=== PATIENT | male | born 1990 | race Caucasian/White ===

== ENCOUNTER 2019-09-09 10:58 | Emergency (ER) | payer MEDICAID ==
[~2019-09-09] VITALS: Ht 182.9 cm; Wt 72.7 kg
[2019-09-09] MEDS ORDERED: TETanus/Pertussis (Acell)/Diphther VAC/PF (Tdap-Adult) 0.5ml syringe IMVAC ONE (11:10)
[2019-09-09] MEDS ORDERED: normal saline 1000ML IV soln IVB ONE (11:10)
--- NOTE | 2019-09-09 11:11 | NUR ---
Ice pack applied to arm and pack provided to pt for facial use.
[2019-09-09] MEDS ORDERED: iohexol 300mg/ml 100ml inj. ONE (11:13)
--- NOTE | 2019-09-09 11:25 | NUR ---
APPLIED ICE PACK TO WRIST
[2019-09-09 11:29] LABS: BASOPHILS % (AUTO) 0.6 % (0-1); EOSINOPHILS % (AUTO) 0.2 % (0-6); HEMATOCRIT 42.8 % (42.0-52.0); HEMOGLOBIN 14.4 g/dl (14.0-17.9); LYMPHOCYTES % (AUTO) 23.6 % (21-51); MEAN CORPUSCULAR HEMOGLOBIN 32.8 PG (27.0-31.0); MEAN CORPUSCULAR HGB CONC 33.6 g/dL (33.0-36.5); MEAN CORPUSCULAR VOLUME 97.7 FL (78-98); MEAN PLATELET VOLUME 8.9 FL (7.4-10.4); MONOCYTES # (AUTO) 0.5 X10'3 (0-0.9); MONOCYTES % (AUTO) 6.1 % (2-12); NEUTROPHILS # (AUTO) 5.8 X10'3 (1.8-7.7); NEUTROPHILS % (AUTO) 69.5 % (42-75); PLATELET COUNT 191 X10'3 (140-440); RED BLOOD COUNT 4.38 X10'6 (4.70-6.10); RED CELL DISTRIBUTION WIDTH 14.2 % (11.5-14.5); WHITE BLOOD COUNT 8.3 X10'3 (4.5-11.0)
[2019-09-09 11:40] LABS: ALANINE AMINOTRANSFERASE 21 U/L (12-78); ALBUMIN 4.3 G/DL (3.4-5.0); ALBUMIN/GLOBULIN RATIO 1.2 (1.1-1.5); ALKALINE PHOSPHATASE 154 IU/L (46-116); ANION GAP 8 (8-16); ASPARTATE AMINO TRANSFERASE 31 U/L (10-37); BILIRUBIN,TOTAL 1.1 MG/DL (0.1-1.0); BLOOD UREA NITROGEN 12 MG/DL (7-18); BUN/CREATININE RATIO 16.7 (5.4-32.0); CALCIUM 8.9 MG/DL (8.5-10.1); CHLORIDE 109 MMOL/L (99-107); CREATININE 0.72 MG/DL (0.60-1.10); ETHANOL 0.105 GM/DL (0.0-0.010); GLUCOSE 78 MG/DL (70-104); POTASSIUM 4.4 MMOL/L (3.5-5.1); SODIUM 145 MMOL/L (135-145); TOTAL CARBON DIOXIDE 27.8 MMOL/L (24-32); TOTAL PROTEIN 7.9 G/DL (6.4-8.2); eGFR > 90 ML/MIN
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
--- NOTE | 2019-09-09 11:52 | NUR ---
Pt's best contact # [phone] (cell phone)
--- NOTE | 2019-09-09 11:57 | NUR ---
FRIEND JUNIOR PHONE NUMBER IS PT RIDE [phone]
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
[2019-09-09] MEDS ORDERED: acetaminophen 325mg tablet PO ONE (12:05)
[2019-09-09] MEDS ORDERED: HYDR-4353 PO (12:28)
[2019-09-09] MEDS ORDERED: ONDA4TAB6 PO (12:28)
--- NOTE | 2019-09-09 12:28 | NUR ---
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
[2019-09-09 13:13] LABS: URINE AMPHETAMINE SCREEN NEGATIVE (Neg); URINE BARBITUATE SCREEN NEGATIVE (Neg); URINE BENZODIAZEPINES SCREEN NEGATIVE (Neg); URINE CANNABINOID SCREEN NEGATIVE (Neg); URINE COCAINE SCREEN POSITIVE (Neg); URINE METHADONE SCREEN NEGATIVE (Neg); URINE OPIATE SCREEN NEGATIVE (Neg); URINE PHENCYCLIDINE SCREEN NEGATIVE (Neg)
[2019-09-09 13:40] VITALS: BP 114/68
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
== END 2019-09-09 13:30 | disposition home or self-care (01) ==
LOC: ER 10:58
DX: S06.0X1A Concussion with loss of consciousness of 30 minutes or less, initial encounter (principal); S52.592A Other fractures of lower end of left radius, initial encounter for closed fracture; S02.40DA Maxillary fracture, left side, initial encounter for closed fracture; S02.85XA Fracture of orbit, unspecified, initial encounter for closed fracture; S05.12XA Contusion of eyeball and orbital tissues, left eye, initial encounter; H11.32 Conjunctival hemorrhage, left eye; F10.920 Alcohol use, unspecified with intoxication, uncomplicated; N28.1 Cyst of kidney, acquired; R04.89 Hemorrhage from other sites in respiratory passages; R07.81 Pleurodynia; Y04.8XXA Assault by other bodily force, initial encounter; Y93.89 Activity, other specified; Y92.89 Other specified places as the place of occurrence of the external cause; Y99.8 Other external cause status; Z79.899 Other long term (current) drug therapy
CPT/HCPCS: 29125; 36415; 70450; 70486; 71260; 73110; 74177; 80053; 80305; 80320; 85025; 90715; 99285; J7030; Q9967